=== PATIENT | female | born 1930 | race Hispanic/Latino ===

== ENCOUNTER 2018-09-16 08:22 | Inpatient (IN) | payer MEDICARE | END 2018-09-21 11:08 | disposition home or self-care (01) | LOC: EDH 08:22 → EDHIP 11:13 → 2DH 11:53 | PROC: 047N3ZZ Dilation of Left Popliteal Artery, Percutaneous Approach (ICD-10-PCS; principal; ~2018-09-16) | PROC: B4101ZZ Fluoroscopy of Abdominal Aorta using Low Osmolar Contrast (ICD-10-PCS; ~2018-09-16) | PROC: 047L3ZZ Dilation of Left Femoral Artery, Percutaneous Approach (ICD-10-PCS; ~2018-09-16) | PROC: B41G1ZZ Fluoroscopy of Left Lower Extremity Arteries using Low Osmolar Contrast (ICD-10-PCS; ~2018-09-16) | DX: I70.202 Unspecified atherosclerosis of native arteries of extremities, left leg (principal); I99.8 Other disorder of circulatory system; I10 Essential (primary) hypertension ==

== ENCOUNTER → 2018-11-13 | Outpatient (CLI) | payer MEDICARE ==
[~2018-11-13] MED LIST: CEPH500C2 PO
== END | disposition home or self-care (01) ==
LOC: SHCH 10:33
PROVIDERS: ATTEND Internal Medicine Cardiovascular Disease
DX: I73.9 Peripheral vascular disease, unspecified (principal); I87.2 Venous insufficiency (chronic) (peripheral)
CPT/HCPCS: 93925; 93970

== ENCOUNTER 2019-01-17 05:52 | Day surgery (SDC) | payer MEDICARE ==
[2019-01-15 08:49] LABS: BASOPHILS % (AUTO) 0.9 % (0.0-5.0); EOSINOPHILS % (AUTO) 0.9 % (0.0-8.0); LYMPHOCYTES % (AUTO) 20.4 % (21.0-51.0); MEAN CORPUSCULAR HEMOGLOBIN 30.4 pg (27.0-33.0); MEAN CORPUSCULAR HGB CONC 32.9 g/dL (32.0-36.0); MEAN CORPUSCULAR VOLUME 92.3 fL (79-99); MONOCYTES % (AUTO) 5.8 % (3.0-13.0); PLATELET COUNT (AUTO) 201 K/uL (130-400); RED BLOOD CELL COUNT(AUTO) 4.01 MIL/uL (4.00-5.50); RED CELL DISTRIBUTION WIDTH 13.7 % (11.0-15.5); WHITE BLOOD COUNT (AUTO) 6.9 K/uL (4.8-10.8)
[2019-01-15 08:52] LABS: APPEARANCE,URINE Clear (CLEAR); BILIRUBIN,URINE Negative (NEGATIVE); COLOR,URINE Yellow (YELLOW); GLUCOSE, URINE (UA) Negative (NEGATIVE); KETONES,URINE Negative (NEGATIVE); LEUKOCYTE ESTERASE ,URINE Trace (NEGATIVE); NITRATE,URINE Negative (NEGATIVE); OCCULT BLOOD,URINE Trace (NEGATIVE); PROTEIN,URINE Negative (NEGATIVE); UROBILINOGEN,URINE 0.2 mg/dL (0.2-1.0)
[2019-01-15 08:56] VITALS: BP 184/57
[2019-01-15 09:13] LABS: CREATININE 0.9 mg/dL (0.5-1.5)
[2019-01-15 09:16] LABS: BACTERIA,URINE Rare /HPF (None Seen); RBC,URINE 0-1 /HPF (0-1); SQUAMOUS EPITHELIAL CELL,UR Rare /HPF (0-2); WBC,URINE 0-1 /HPF (0-1)
[2019-01-15 09:16] LABS: INR 1.06 (0.85-1.15); PARTIAL THROMBOPLASTIN TIME 34.4 SEC (26.3-35.5); PROTHROMBIN TIME 11.1 SEC (9.6-11.6)
--- NOTE | 2019-01-15 11:00 | NUR ---
XARELTO INFORMED SON OF TAYLOR GIBBS ORDERS TO CONTINUE XARELTO FOR PROCEDURE. PTS SON VERBALIZED UNDERSTANDING. PT WILL CONTINUE WITH XARELTO USE.
[~2019-01-17] VITALS: Ht 160 cm; Wt 55.9 kg
[2019-01-17] VITALS (8 sets, daily range): BP systolic 104–183; BP diastolic 35–84
[~2019-01-17 05:52] MED LIST changes: +ACET-2743 PO; +ATOR10TA69 PO; -CEPH500C2 PO; +LISI-617 PO; +RIVA2.5T PO; +SODIUM CHLORIDE 0.9% 500ML 500 ML IV SCH
--- NOTE | 2019-01-17 06:10 | NUR ---
PRE-PROCEDURE RECEIVED PT AMBULATING FROM HOME ACCOMPANIED BY SON FOR PLANNED LLE ANGIOGRAM. PER SON PT HAD NOT TAKEN AM MEDS (LISINOPRIL, XARELTO) "SHE NORMALLY TAKES HER MEDS AT 0700". MEDS GIVEN WITH SIP OF WATER. CONNECTED TO CONTINUOUS CARDIOPULMONARY MONITORING. AWAKE IN NO ACUTE DISTRESS. DENIES PAIN AT PRESENT TIME, BUT HAS INTERMITTENT PAIN TO LLE. LEFT FOOT WARM TO TOUCH, BUT FOOT WITH PURPLISH DISCOLORATION AND WITH NON-PITTING EDEMA COMPARED TO RIGHT FOOT. BED IN LOWEST POSITION, CALL LIGHT W/IN REACH, SIDE RAILS UP X2.
[2019-01-17] MEDS ORDERED: SODIUM CHLORIDE 0.9% 1000ML 1,000 ML IV ONE (06:51)
--- NOTE | 2019-01-17 08:05 | NUR ---
PROCEDURE TRANSFERRED TO ENTRY LEVEL RECRUITER VIA BED. AWAKE IN NO ACUTE DISTRESS.
[2019-01-17] MEDS ORDERED: SODIUM CHLORIDE 0.9% 1000ML 1,000 ML IV SCH (08:12)
[2019-01-17] MEDS ORDERED: METOPROLOL TARTRATE 1 MG/ML 5ML VIAL IV PRN (08:15)
[2019-01-17] MEDS ORDERED: HYDRALAZINE HCL 20 MG/ML VIAL IV PRN (08:15)
[2019-01-17] MEDS ORDERED: GLUCAGON 1MG KIT 1 MG ML IM PRN (08:15)
[2019-01-17] MEDS ORDERED: DEXTROSE 50%-WATER 50 ML DISP.SYRIN IV PRN (08:15)
[2019-01-17] MEDS ORDERED: NITROGLYCERIN 0.4 MG SL TAB SL PRN (08:15)
[2019-01-17] MEDS ORDERED: PROTAMINE SULFATE 10 MG/ML 25ML VIAL IV ONE (09:21)
[2019-01-17] MEDS ORDERED: HYDRALAZINE HCL 20 MG/ML VIAL ONE (09:35)
[2019-01-17] MEDS ORDERED: MORPHINE SULFATE 4 MG/1ML SYG ONE (09:39)
--- NOTE | 2019-01-17 10:30 | NUR ---
POST-PROCEDURE RECEIVED FROM CHANGE COORDINATOR VIA BED BY YOON CHINCHILLA S/P LLE ANGIOGRAM. AWAKE IN NO ACUTE DISTRESS. CATH SITE TO R GROIN WITH DSTAT, DRESSING CD&I, SITE SOFT, NON-TENDER. EDUCATED PT TO NOT MOVE RLE, RAISE HEAD, AND TO APPLY PRESSURE TO SITE FOR COUGHING/SNEEZING. PT VERBALIZED UNDERSTANDING. PT AND SON UPDATED ON PLAN OF CARE INCLUDING REGULAR DIET, BEDREST X2, PLAN FOR DISCHARGE AT 1430. BOTH VERBALIZED UNDERSTANDING. C/O OF PAIN 8/10 TO LLE, INTERMITTENT. PT TOOK HOME MED OF TYLENOL 500MG. WILL CONTINUE TO MONITOR.
[2019-01-17] MEDS ORDERED: INSULIN HUMULIN R 100 UNIT/ML 3ML SQ SCH (11:30)
--- NOTE | 2019-01-17 11:30 | NUR ---
PAIN FOLLOW UP PT CONTINUES TO C/O OF INTERMITTENT PAIN TO LLE. INFORMED PT I WOULD NOTIFY MD FOR FURTHER ORDERS.
--- NOTE | 2019-01-17 11:58 | NUR ---
ORDERS TAYLOR VASQUEZ RETURN PAGE. NOTIFIED PT C/O LLE PAIN 04/19. ORDER RECEIVED FRO MORPHINE 1-2MG [id number] PRN PAIN 03/19.
--- NOTE | 2019-01-17 12:02 | NUR ---
PAIN PT AND FAMILY UPDATED ORDER RECEIVED FORM MORPHINE. PT STATES " I DO NOT HAVE PAIN RIGHT NOW. IT COMES AND GOES" REFUSE MORPHINE AT PRESENT TIME.
--- NOTE | 2019-01-17 13:20 | NUR ---
DIET ATE 100% OF LUNCH.
--- NOTE | 2019-01-17 13:26 | NUR ---
ACTIVITY UP TO CHAIR WITH STANDBY ASSIST OF 1. DENIES PAIN. CATH SITE SOFT, NON-TENDER, DRESSING CLEAN, DRY, AND INTACT.
--- NOTE | 2019-01-17 14:10 | NUR ---
DISCHARGE DAY PT DISCHARGE INSTRUCTIONS SHEET, MED REC, AND PT EDUCATION REVIEWED WITH PT AND SON. EDUCATED HOW TO CHECK CATH SITE FOR ANY SIGNS OF BLEEDING.IF BLEEDING OCCURS TO APPLY PRESSURE AND CALL 911. BOTH VERBALIZED UNDERSTANDING. OPPORTUNITY GIVEN TO ASK QUESTIONS. QUESTIONS ADDRESSED.
--- NOTE | 2019-01-17 14:48 | NUR ---
DISCHARGE DISCHARGED VIA W/C IN NO ACUTE DISTRESS. CATH SITE W/O SIGNS OF BLEEDING, DRESSING CLEAN, DRY, AND INTACT. DENIES PAIN AT PRESENT TIME.
== END 2019-01-17 14:42 | disposition home or self-care (01) ==
LOC: DAH 05:52
PROVIDERS: ATTEND Internal Medicine Cardiovascular Disease
DX: I70.212 Atherosclerosis of native arteries of extremities with intermittent claudication, left leg (principal); I10 Essential (primary) hypertension; Z79.01 Long term (current) use of anticoagulants; Z79.899 Other long term (current) drug therapy; Z98.890 Other specified postprocedural states; I87.2 Venous insufficiency (chronic) (peripheral); E78.5 Hyperlipidemia, unspecified
CPT/HCPCS: 36247; 36415 ×2; 75630; 80048; 81001; 85025; 85347 ×2; 85610; 85730; A4606; C1725; C1769 ×3; C1887; C1893; C1894 ×2; J0360; J1644; J2270; J2720; J7030

== ENCOUNTER → 2019-02-25 | Outpatient (CLI) | payer MEDICARE ==
[~2019-02-25] MED LIST changes: -SODIUM CHLORIDE 0.9% 500ML 500 ML IV SCH
== END | disposition home or self-care (01) ==
LOC: OIH 13:36
PROVIDERS: ATTEND Internal Medicine
DX: M47.816 Spondylosis without myelopathy or radiculopathy, lumbar region (principal); M41.87 Other forms of scoliosis, lumbosacral region; M85.88 Other specified disorders of bone density and structure, other site
CPT/HCPCS: 72100

== ENCOUNTER → 2019-07-17 | Outpatient (CLI) | payer MEDICARE | END | disposition home or self-care (01) | LOC: SHCH 07:50 | PROVIDERS: ATTEND Internal Medicine Cardiovascular Disease | DX: I87.2 Venous insufficiency (chronic) (peripheral) (principal) | CPT/HCPCS: 93970 ==

== ENCOUNTER → 2019-09-24 | Outpatient (CLI) | payer MEDICARE | END | disposition home or self-care (01) | LOC: SHCH 08:54 | PROVIDERS: ATTEND Internal Medicine Cardiovascular Disease | DX: I65.21 Occlusion and stenosis of right carotid artery (principal); I73.9 Peripheral vascular disease, unspecified | CPT/HCPCS: 93925 ==

== ENCOUNTER 2020-02-24 10:09 | Inpatient (IN) | payer MEDICARE ==
[~2020-02-24] VITALS: Ht 162.6 cm; Wt 79.6 kg
[2020-02-24 10:49] LABS: BASOPHILS % (AUTO) 0.2 % (0.0-5.0); HEMATOCRIT 41.7 % (36-48); LYMPHOCYTES % (AUTO) 4.2 % (21.0-51.0); MEAN CORPUSCULAR HEMOGLOBIN 30.3 pg (27.0-33.0); MEAN CORPUSCULAR HGB CONC 33.6 g/dL (32.0-36.0); MEAN CORPUSCULAR VOLUME 90.3 fL (79-99); MONOCYTES % (AUTO) 3.9 % (3.0-13.0); NEUTROPHILS % (AUTO) 88.4 % (40.0-77.0); PLATELET COUNT (AUTO) 192 K/uL (130-400); RED BLOOD CELL COUNT(AUTO) 4.62 MIL/uL (4.00-5.50); RED CELL DISTRIBUTION WIDTH 13.2 % (11.0-15.5); WHITE BLOOD COUNT (AUTO) 14.5 K/uL (4.8-10.8)
[2020-02-24 10:50] LABS: APPEARANCE,URINE CLEAR (CLEAR); BILIRUBIN,URINE SMALL (NEGATIVE); COLOR,URINE YELLOW (YELLOW); GLUCOSE, URINE (UA) NEGATIVE (NEGATIVE); KETONES,URINE 15 mg/dL (NEGATIVE); LEUKOCYTE ESTERASE ,URINE TRACE (NEGATIVE); NITRATE,URINE NEGATIVE (NEGATIVE); OCCULT BLOOD,URINE MODERATE (NEGATIVE); PROTEIN,URINE 30 mg/dL (NEGATIVE)
[2020-02-24 11:01] LABS: CREATININE 1.2 mg/dL (0.5-1.5)
[2020-02-24 11:06] LABS: BACTERIA,URINE Moderate /HPF (None Seen)
[2020-02-24 11:07] LABS: SQUAMOUS EPITHELIAL CELL,UR 0-2 /HPF (0-2); WBC,URINE 0-1 /HPF (0-1)
[2020-02-24 11:18] LABS: ALBUMIN 4.1 g/dL (3.5-5.0); TOTAL PROTEIN, SERUM 7.4 g/dL (6.0-8.3)
[2020-02-24] MEDS ORDERED: SODIUM CHLORIDE 0.9% 1000ML 1,000 ML IV ONE (12:41)
[2020-02-24] MEDS ORDERED: ONDANSETRON HCL 4 MG/2 ML VIAL ONE ×3 (12:41→20:47)
[2020-02-24] MEDS ORDERED: IOHEXOL-350 75 ML VIAL IV ONE (13:50)
[2020-02-24] MEDS ORDERED: 1/2 NORMAL SALINE 1,000 ML IV ONE (16:03)
[2020-02-24] MEDS ORDERED: ONDANSETRON HCL 4 MG/2 ML VIAL IVP PRN (16:30)
[2020-02-24] MEDS ORDERED: 1/2 NORMAL SALINE 1,000 ML IV SCH (16:30)
[2020-02-24] MEDS ORDERED: HYDROMORPHONE HCL 0.5 MG/0.5 ML ML ONE (20:47)
[2020-02-24 21:10] VITALS: BP 128/46
--- NOTE | 2020-02-24 23:00 | NUR ---
2210: Had paged via answering service, returned call. Informed him of consult and reason for consult. Questioned if the hernia had been reduced down stairs, in ER. Informed him was not given report that it had been done. Then I gave him the results of the CT Scan, orders to reduce the hernia, and to change the IV fluids. Doctor stated would see patient tomorrow. 2235: called to check to see how patient was doing, informed him patient no longer in pain. Doctor asked if Dr. Mari had come in to see her. Informed him I was just on the phone with him, and he said he would see her tomorrow, just for myself to reduce the hernia. No new orders.
[2020-02-24 23:23] VITALS: BP 135/70
--- NOTE | 2020-02-24 23:40 | NUR ---
Attempted to reduce hernia to rt groin area, lay down unable to reduce. Patient denies any pain. NGT continue to drain dark brown/greenish drainage. HOB elevated.
[2020-02-25] VITALS (23 sets, daily range): BP systolic 95–157; BP diastolic 45–66
[2020-02-25] MEDS: LACTATED RINGERS 1000ML 1,000 ML IV SCH ×4 (01:46→20:36)
[2020-02-25 06:10] LABS: HEMATOCRIT 36.8 % (36-48); MEAN CORPUSCULAR HEMOGLOBIN 30.3 pg (27.0-33.0); MEAN CORPUSCULAR HGB CONC 33.4 g/dL (32.0-36.0); MEAN CORPUSCULAR VOLUME 90.6 fL (79-99); RED BLOOD CELL COUNT(AUTO) 4.06 MIL/uL (4.00-5.50); RED CELL DISTRIBUTION WIDTH 13.6 % (11.0-15.5); WHITE BLOOD COUNT (AUTO) 4.6 K/uL (4.8-10.8)
[2020-02-25] MEDS ORDERED: HYDROMORPHONE HCL 0.5 MG/0.5 ML ML ONE (06:27)
[2020-02-25 06:38] LABS: ALBUMIN 3.1 g/dL (3.5-5.0); TOTAL PROTEIN, SERUM 6.1 g/dL (6.0-8.3)
--- NOTE | 2020-02-25 07:00 | NUR ---
0630: came in to examine patient, informed him had just been here. went ahead and did manual reduction to the rt inguinal herna. Then he went ahead and flushed with air, and it started to drain more green/brownish drainage. output was [address] Mari wrote orders for surgery, and he said to make sure and have some one call me within a reasonable time open to do the surgery. Due to he has 10 cases at another hospital. 0700: [place] [facility] [employer] [facility] called informed him had faxed the order for the surgery, also reminded him some one needed to contact Dr. Mari to let him know within a reasonable time for open surgery slot. Oh NETTLES stated he would [facility] 0710: Traci NETTLES and I spoke to patient's son Melvin to make sure and get a phone consent for the surgery. Everything was explained by Traci NETTLES. He agreed, and I verified.
[2020-02-25] MEDS: PANTOPRAZOLE SODIUM 40 MG TABLET.DR PO SCH (08:57)
[2020-02-25] MEDS ORDERED: HYDROMORPHONE HCL 0.5 MG/0.5 ML ML IVP PRN (09:00)
[2020-02-25] MEDS ORDERED: CEFAZOLIN SODIUM 1 GM VIAL IVP SCH (09:00)
[2020-02-25 09:23] LABS: INR 1.03 (0.85-1.15); PARTIAL THROMBOPLASTIN TIME 28.2 SEC (26.3-35.5); PROTHROMBIN TIME 11.1 SEC (9.6-11.6)
--- NOTE | 2020-02-25 09:30 | NUR ---
CHIDI NOTES MET W PATIENT AND CHARITO GARCES AT BEDSIDE PRIOR TO SURGERY. SON STATES PATIENT LIVES WITH SEVERAL SIBLINGS, ALL ELDERLY, IN HOME THAT IS SAFE AND ACCESSIBLE, PATIENT HAS NO DME EXCEPT A CANE AND USES NO SHOWER CHAIR. NO HOME HEALTH OR PROVIDER SERVICES, INDEPENDENT IN ALL THINGS EXCEPT DRIVING- SON DRIVES TO APPOINTMENTS. PAIN STATES PAIN BEGAN WHEN PATIENT WAS TAKING HER SHEET SOFF THE LINE BECAUSE IT WAS GOING TO RAIN. EXPECT TO GO HOME WITH HOME HEALTH IF NEEDED, PATIENT WILL DECLINE PLACEMENT. Addendum: 02/25/20 at 1833 by MAXIMUS PELAEZ RN CM Amended: Links added.
[2020-02-25] MEDS ORDERED: DEXAMETHASONE SOD PHOSPHATE 10MG/ML 1ML VIAL ONE (15:10)
[2020-02-25] MEDS ORDERED: SUCCINYLCHOLINE CHLORIDE 20 MG/ML 10 ML VIAL ONE (15:10)
[2020-02-25] MEDS ORDERED: LIDOCAINE PF 2% 5ML ABBOJECT ONE (15:10)
--- NOTE | 2020-02-25 15:10 | NUR ---
PT LEFT VIA BED TO OR WITH CALEB NETTLES.. V/S STABLE A/A X 3 .
[2020-02-25] MEDS ORDERED: NEOSTIGMINE 5MG/5ML SYR IV ONE (15:11)
[2020-02-25] MEDS ORDERED: GLYCOPYRROLATE 1 MG/5 ML SYRINGE ONE (15:11)
[2020-02-25] MEDS ORDERED: ROCURONIUM 10MG/1ML SYR 10 MG/ML ML ONE (15:11)
[2020-02-25] MEDS ORDERED: MIDAZOLAM HCL 1 MG/ML 2ML VIAL ONE (15:11)
[2020-02-25] MEDS ORDERED: ONDANSETRON HCL 4 MG/2 ML VIAL ONE (15:11)
[2020-02-25] MEDS ORDERED: FENTANYL CITRATE PF 50 MCG/1 ML 2ML VIAL ONE (15:12)
[2020-02-25] MEDS ORDERED: PROPOFOL 10 MG/ML 20ML VIAL IV ONE (15:24)
--- NOTE | 2020-02-25 15:54 | NUR ---
1210 patient signed IM Letter, I faxed IM Letter to [phone] and placed in chart under consent tab.
[2020-02-25] MEDS ORDERED: BUPIVACAINE/EPI/PF 0.25% 30ML VIAL IJ ONE (16:41)
[2020-02-25] MEDS ORDERED: METOPROLOL TARTRATE 1 MG/ML 5ML VIAL IV ONE (17:46)
[2020-02-25] MEDS ORDERED: ESMOLOL HCL 10 MG/ML 10 ML VIAL ONE (17:46)
[2020-02-25] MEDS ORDERED: LABETALOL HCL 5 MG/ML 20ML VIAL IV ONE (17:48)
[2020-02-25] MEDS ORDERED: MEPERIDINE-PF 25 MG/ML SYG ONE (18:33)
--- NOTE | 2020-02-25 18:40 | NUR ---
S/P RIGHT INGUINAL REPAIR HERNIA REPAIR RECEIVED REPORT PATIENT S/P CONTINUE NG TO LIS, VS NSP 63, B/P 137/48 T 97.1 , O2 SATS 96 ON 2 LITERS NC MEDICATED WITH DEMEROL 25MG 1828. WAITING FOR PATIENT TO ARRIVE
[2020-02-26 00:32] VITALS: BP 131/58
[2020-02-26 04:00] VITALS: BP 124/52
[2020-02-26] MEDS: LACTATED RINGERS 1000ML 1,000 ML IV SCH ×2 (04:21→14:56)
--- NOTE | 2020-02-26 04:25 | NUR ---
02/25/20 @ 1910 Patient arrived from recovery room, alert oriented x3. Dressing to rt inguinal area dry and intact.Vital signs within normal limits refer to flowsheet. Patient informed of new orders to monitor NGT every 3 hours if less then 150 drainage every 3 hours, could be started on clear liquid. Patient verbalized understanding. Patient denies any discomfort at this time. Able to move all extremities without any difficulty. 02/25/20 @ 2210: Ngt tube remains in place, checked for placement, +. No drainage so far, continues on LIS. 02/26/20 @ 0110: Again checked on NGT output, none. Air bolus inserted, good placement, connected to LIS no output. Patient's dressing to rt inguinal dressing D/I. 02/26/20 @ 0410 I checked patient's NGT no output.NGT clamped informed patient will order clear liquids for today, verbalized understanding.
[2020-02-26] MEDS ORDERED: ACETAMINOPHEN EXTRA STRENGTH 500 MG TABLET PO PRN (04:45)
[2020-02-26] MEDS ORDERED: KETOROLAC TROMETHAMINE 15MG/ML IV SCH (06:45)
[2020-02-26 08:00] VITALS: BP 143/60
[2020-02-26] MEDS ORDERED: LISINOPRIL 5 MG TABLET PO SCH ×2 (09:00)
[2020-02-26] MEDS: PANTOPRAZOLE SODIUM 40 MG TABLET.DR PO SCH (09:20)
[2020-02-26 12:00] VITALS: BP 124/55
[2020-02-26 16:00] VITALS: BP 137/55
--- NOTE | 2020-02-26 17:30 | NUR ---
NG NG REMOVED PT WAS ABLE TO TOLERATE CLEAR LIQUID DIET FOR BREAKFAST, FULL LIQUID FOR LUNCH AND DINNER.
--- NOTE | 2020-02-26 18:37 | NUR ---
D/C PT IS A/A X3 HAS BOWEL SOUND AND IS PASSING GAS. PT WAS ABLE TO TOLERATE BREAKFAST, LUNCH AND DINNER. DRESSING IS CLEAN, DRY AND INTACT. F/U APPT FOR ANIVAL IS [address] HEATH IN 2 WEEKS. D/C INSTRUCTIONS GIVEN TO SON. NO COMPLICATIONS UPON D/C.
[2020-02-26] MEDS ORDERED: ZOLPIDEM TARTRATE 5 MG TAB PO SCH (21:00)
[2020-02-26] MEDS ORDERED: ATORVASTATIN CALCIUM 20 MG TABLET PO SCH (21:00)
== END 2020-02-26 18:30 | disposition home or self-care (01) | DRG 352 ==
LOC: EDH 10:09 → EDHIP 14:18 → OBSVTOIN 14:18 → 3BH 21:12
PROVIDERS: ADMIT Internal Medicine; ATTEND Internal Medicine
PROC: 0D9670Z Drainage of Stomach with Drainage Device, Via Natural or Artificial Opening (ICD-10-PCS; 2020-02-24)
PROC: 0YQ50ZZ Repair Right Inguinal Region, Open Approach (ICD-10-PCS; principal; 2020-02-25 16:41)
DX: K40.30 Unilateral inguinal hernia, with obstruction, without gangrene, not specified as recurrent (principal); I10 Essential (primary) hypertension; Z86.718 Personal history of other venous thrombosis and embolism; I73.9 Peripheral vascular disease, unspecified; M15.9 Polyosteoarthritis, unspecified
CPT/HCPCS: 36415; 74177; 80053; 81001; 82550; 83690; 84484; 85025; 85027; 85610; 85651; 85730; 87088; 93005; A4344; G0378; J0330; J0690; J1100; J1170; J1885; J2001; J2175; J2250; J2405; J2704; J2710; J3010; J3490; J7030; J7120; Q9967